=== PATIENT | female | born 1985 | race Caucasian/White ===

== ENCOUNTER 2016-04-30 09:33 | Inpatient (IN) | payer BC ==
[~2016-04-30] VITALS: Ht 154.9 cm; Wt 99.2 kg
[~2016-04-30 09:33] MED LIST: AZITHROMYCIN250 MG1 PO; COMBIVENT RESPIM4 GM IH; EXCEDRIN MIGRA1 EAC3 PO; IBUPROFEN800 MG PO; KLOR-CON M2020 MEQ PO; LEVAQUIN500 MG PO; METHADONE 22 MG/1 ML PO; METHADONE10 MG/1 M1 PO; METHADOSE40 MG PO; NICODERM CQ1 EAC2 TD; PREDNISONE10 MG PO; SUBOXONE 8 MG-1 EAC2 SL; VENTOLIN HFA18 GM IH; ZITHROMAX Z-PA250 MG PO
[2016-04-30 10:41] LABS: EOSINOPHIL (%) 0 % (0-5); IMMATURE GRANULOCYTE (%) 0.3 % (0.0-0.7); IMMATURE GRANULOCYTE COUNT 0.4 K/uL; LYMPHOCYTE COUNT 1.2 K/uL (1.0-2.8); MCH 29.3 PG (29.0-34.0); MCHC 33.1 G/DL (30.0-36.0); MCV 88.4 FL (83-99); MEAN PLAT.VOLUME 10.6 uM^3 (9.5-12.4); MONOCYTE (%) 2.5 % (3-12); MONOCYTE COUNT 0.4 K/uL (0-0.8); NEUTROPHIL (%) 88.8 % (45-76); NEUTROPHIL COUNT 12.6 K/uL (1.8-6.4); PLATELET COUNT 227 K/uL (156-360); RBC DIS.WIDTH-CV 13.2 % (11.8-14.6); RBC DIS.WIDTH-SD 41.2 % (39-53); RED BLOOD COUNT 3.96 M/uL (3.80-5.20); WHITE BLOOD COUNT 14.2 K/uL (4.1-10.2)
[2016-04-30 10:49] LABS: PROTHROMBIN TIME 10.4 (9.2-11.2)
[2016-04-30 10:51] LABS: CHLORIDE 103 mEq/L (99-109)
[2016-04-30 10:52] LABS: POTASSIUM 4.1 mEq/L (3.7-5.4); SODIUM 138 mEq/L (136-147)
[2016-04-30 10:53] LABS: GLUCOSE 100 mg/dL (70-99)
[2016-04-30 10:55] LABS: ANION GAP 11 MEQ/L (2-14)
[2016-04-30 10:57] LABS: GFR ESTIMATE (CALCULATED) > 59 mL/min/
[2016-04-30 10:58] LABS: UREA NITROGEN (BUN) 6 mg/dL (9-23)
[2016-04-30 11:06] LABS: QUANTITATIVE HCG < 4.0 MIU/ML
[2016-04-30 11:52] LABS: BASE EXCESS 1.8 mEq/L (-3 to +3); BICARBONATE 27.7 mEq/L (22-26); CARBOXY HGB 3.3 % (0-5); METHEMOGLOBIN 1.1 % (0-1.5); PCO2 48 mm Hg (35-45); PO2 56 mm Hg (80-100); pH 7.37 (7.35-7.45)
[2016-04-30 11:53] LABS: COMMENTS - BLOOD GASES A+C+; DEVICE HFNC; O2 FLOW 5 L/MIN; SITE RR; TOTAL RESP RATE 16 resp/min
[2016-04-30 13:44] LABS: BILIRUBIN NEGATIVE; BLOOD NEGATIVE; COLOR YELLOW ((YELLOW)); GLUCOSE (STRIP) 100; KETONES NEGATIVE; LEUKOCYTES NEGATIVE; NITRITE NEGATIVE; PROTEIN (STRIP) NEGATIVE; SPECIFIC GRAVITY 1.006 (1.000-1.030); UROBILINOGEN 0.2 MG/DL (0.2-1.0)
[2016-04-30 13:46] LABS: ADD MIUA? NO; UCUL ADDED? NO
[2016-04-30 15:13] VITALS: BP 112/70
[2016-04-30 16:48] VITALS: BP 110/68
[2016-04-30 19:27] VITALS: BP 123/71
[2016-04-30 23:20] VITALS: BP 120/53
[2016-05-01] VITALS (12 sets, daily range): BP systolic 103–136; BP diastolic 48–73
[2016-05-01 04:13] LABS: BASE EXCESS 2.7 mEq/L (-3 to +3); BICARBONATE 29.5 mEq/L (22-26); CARBOXY HGB 2.1 % (0-5); METHEMOGLOBIN 1.5 % (0-1.5); PCO2 56 mm Hg (35-45); PO2 77 mm Hg (80-100); pH 7.33 (7.35-7.45)
[2016-05-01 04:14] LABS: COMMENTS - BLOOD GASES A+C+; DEVICE HHFNC; FI02 80 %; O2 FLOW 50 L/MIN; SITE RR; TOTAL RESP RATE 40 resp/min
[2016-05-01 07:03] LABS: HEMATOCRIT 31.3 % (36.0-46.0); MCH 29.8 PG (29.0-34.0); MCHC 33.2 G/DL (30.0-36.0); MCV 89.7 FL (83-99); RBC DIS.WIDTH-CV 13.7 % (11.8-14.6); RBC DIS.WIDTH-SD 44.9 % (39-53); RED BLOOD COUNT 3.49 M/uL (3.80-5.20); WHITE BLOOD COUNT 10.7 K/uL (4.1-10.2)
[2016-05-01 07:11] LABS: METH RESISTANT S AUREUS PCR NEGATIVE (NEGATIVE)
[2016-05-01 07:16] LABS: ANION GAP 8 MEQ/L (2-14); CHLORIDE 104 MEQ/L (99-109); SAMPLE HEMOLYSIS CHECK 1; SAMPLE ICTERIC CHECK 0; SAMPLE LIPEMIA CHECK 0; SODIUM 136 MEQ/L (136-147)
[2016-05-01 07:21] LABS: GFR ESTIMATE (CALCULATED) > 59 mL/min/; GLUCOSE 86 mg/dL (70-99); UREA NITROGEN (BUN) 8 mg/dL (9-23)
[2016-05-01 07:26] LABS: PROBE CHECK PASS; SPECIMEN PROCESSING CONTROL PASS
[2016-05-01 07:35] LABS: ABS NEUTROPHIL COUNT 9.86; ANISOCYTOSIS RARE; MEAN PLAT.VOLUME ND uM^3 (9.5-12.4); PLAT.SUFFICIENCY ADEQUATE; PLATELET COUNT ND K/uL (156-360); USER ID LYM
[2016-05-01 07:38] LABS: DELETE MACHINE DIFF? YES
[2016-05-01 08:00] LABS: BASE EXCESS 1.7 mEq/L (-3 to +3); BICARBONATE 27.7 mEq/L (22-26); CARBOXY HGB 1.4 % (0-5); METHEMOGLOBIN 1.4 % (0-1.5); PCO2 49 mm Hg (35-45); PO2 334 mm Hg (80-100); pH 7.36 (7.35-7.45)
[2016-05-01 08:01] LABS: COMMENTS - BLOOD GASES AC+; CONTINUOUS POS AIRWAY PRESSURE 5 cm H2O; DEVICE 840 VENTILATOR; FI02 100 %; MODE NIPPV; PRES. SUPPORT 12 CM/H2O; SITE RR; TOTAL RESP RATE 31 resp/min
[2016-05-01 08:25] LABS: DIRECT BILIRUBIN 0.1 mg/dL (0.0-0.3); MAGNESIUM 1.8 mg/dl (1.3-2.7); TOTAL BILIRUBIN 0.4 MG/DL (0.0-1.0)
[2016-05-01 08:31] LABS: ALKALINE PHOSPHATASE 73 IU/L (3-129)
[2016-05-01 09:29] LABS: INTERNAL CONTROL VALID? YES
[2016-05-01 09:47] LABS: INFLUENZA A VIRAL ANTIGEN NEGATIVE; INFLUENZA B VIRAL ANTIGEN NEGATIVE
[2016-05-01 10:37] LABS: HIV INDEX 0.07; HIV-1/2 AB/AG COMBO Nonreactive
[2016-05-01 12:54] LABS: C3 COMPLEMENT 174 MG/DL (58-170); C4 COMPLEMENT 19 MG/DL (10-40)
[2016-05-01 18:28] LABS: POINT-OF-CARE METER ID UU14162636
[2016-05-02] VITALS (17 sets, daily range): BP systolic 102–150; BP diastolic 42–71
[2016-05-02 00:13] LABS: POINT-OF-CARE METER ID UU13113731
[2016-05-02 06:54] LABS: EOSINOPHIL (%) 0.1 % (0-5); HEMATOCRIT 33.3 % (36.0-46.0); IMMATURE GRANULOCYTE (%) 0.5 % (0.0-0.7); IMMATURE GRANULOCYTE COUNT 0.1 K/uL; LYMPHOCYTE COUNT 1.7 K/uL (1.0-2.8); MCHC 32.4 G/DL (30.0-36.0); MCV 92.5 FL (83-99); MONOCYTE (%) 4.1 % (3-12); MONOCYTE COUNT 0.7 K/uL (0-0.8); NEUTROPHIL (%) 84.6 % (45-76); NEUTROPHIL COUNT 13.4 K/uL (1.8-6.4); RBC DIS.WIDTH-CV 13.8 % (11.8-14.6); RBC DIS.WIDTH-SD 46.1 % (39-53)
[2016-05-02 06:56] LABS: WHITE BLOOD COUNT 15.8 K/uL (4.1-10.2)
[2016-05-02 06:58] LABS: CHLORIDE 100 MEQ/L (99-109); GFR ESTIMATE (CALCULATED) > 59 mL/min/; GLUCOSE 57 mg/dL (70-99); POTASSIUM 3.9 MEQ/L (3.7-5.4); SAMPLE HEMOLYSIS CHECK 0; SAMPLE ICTERIC CHECK 0; SAMPLE LIPEMIA CHECK 0; SODIUM 139 MEQ/L (136-147); UREA NITROGEN (BUN) 9 mg/dL (9-23)
[2016-05-02 06:59] LABS: ANION GAP 10 MEQ/L (2-14)
[2016-05-02 07:41] LABS: MEAN PLAT.VOLUME 11.3 uM^3 (9.5-12.4); PLAT.SUFFICIENCY ADEQUATE; PLATELET COUNT 223 K/uL (156-360); USER ID STC
[2016-05-02 10:46] LABS: POINT-OF-CARE METER ID UU13113748
[2016-05-03] VITALS (16 sets, daily range): BP systolic 98–127; BP diastolic 41–66
[2016-05-03 06:28] LABS: ANION GAP 9 MEQ/L (2-14); CHLORIDE 97 MEQ/L (99-109); GFR ESTIMATE (CALCULATED) > 59 mL/min/; GLUCOSE 76 mg/dL (70-99); MAGNESIUM 1.8 mg/dl (1.3-2.7); POTASSIUM 3.6 MEQ/L (3.7-5.4); SAMPLE HEMOLYSIS CHECK 0; SAMPLE ICTERIC CHECK 0; SAMPLE LIPEMIA CHECK 0; SODIUM 138 MEQ/L (136-147); UREA NITROGEN (BUN) 10 mg/dL (9-23)
[2016-05-03 07:31] LABS: EOSINOPHIL COUNT 0.3 K/uL (0-0.3); HEMATOCRIT 31.2 % (36.0-46.0); IMMATURE GRANULOCYTE (%) 0.1 % (0.0-0.7); LYMPHOCYTE COUNT 1.5 K/uL (1.0-2.8); MCH 28.9 PG (29.0-34.0); MCHC 32.1 G/DL (30.0-36.0); MCV 90.2 FL (83-99); MEAN PLAT.VOLUME 10.6 uM^3 (9.5-12.4); MONOCYTE (%) 3.6 % (3-12); MONOCYTE COUNT 0.3 K/uL (0-0.8); NEUTROPHIL (%) 71.9 % (45-76); NEUTROPHIL COUNT 5.3 K/uL (1.8-6.4); PLATELET COUNT 238 K/uL (156-360); RBC DIS.WIDTH-CV 13.5 % (11.8-14.6); RBC DIS.WIDTH-SD 44.5 % (39-53); RED BLOOD COUNT 3.46 M/uL (3.80-5.20)
[2016-05-03 07:49] LABS: WHITE BLOOD COUNT 7.4 K/uL (4.1-10.2)
[2016-05-04] VITALS (16 sets, daily range): BP systolic 98–132; BP diastolic 51–79
[2016-05-04 06:29] LABS: ANION GAP 7 MEQ/L (2-14); CHLORIDE 99 MEQ/L (99-109); GFR ESTIMATE (CALCULATED) > 59 mL/min/; GLUCOSE 90 mg/dL (70-99); POTASSIUM 3.6 MEQ/L (3.7-5.4); SAMPLE HEMOLYSIS CHECK 0; SAMPLE ICTERIC CHECK 0; SAMPLE LIPEMIA CHECK 0; SODIUM 139 MEQ/L (136-147); UREA NITROGEN (BUN) 12 mg/dL (9-23)
[2016-05-04 07:48] LABS: EOSINOPHIL (%) 6.2 % (0-5); EOSINOPHIL COUNT 0.3 K/uL (0-0.3); HEMATOCRIT 31.7 % (36.0-46.0); IMMATURE GRANULOCYTE (%) 0.2 % (0.0-0.7); LYMPHOCYTE COUNT 2.1 K/uL (1.0-2.8); MCH 28.3 PG (29.0-34.0); MCHC 31.2 G/DL (30.0-36.0); MCV 90.6 FL (83-99); MEAN PLAT.VOLUME 10.6 uM^3 (9.5-12.4); MONOCYTE (%) 3.1 % (3-12); MONOCYTE COUNT 0.2 K/uL (0-0.8); NEUTROPHIL (%) 47.3 % (45-76); NEUTROPHIL COUNT 2.3 K/uL (1.8-6.4); PLATELET COUNT 235 K/uL (156-360); RBC DIS.WIDTH-CV 13.5 % (11.8-14.6); RBC DIS.WIDTH-SD 44.5 % (39-53); WHITE BLOOD COUNT 4.8 K/uL (4.1-10.2)
[2016-05-04 20:53] LABS: Neutrophil Cytoplasmic Aby Negative (Negative)
[2016-05-05] VITALS (7 sets, daily range): BP systolic 0–123; BP diastolic 0–74
[2016-05-05 05:48] LABS: EOSINOPHIL (%) 5.1 % (0-5); EOSINOPHIL COUNT 0.3 K/uL (0-0.3); HEMATOCRIT 32.1 % (36.0-46.0); IMMATURE GRANULOCYTE (%) 0.4 % (0.0-0.7); LYMPHOCYTE COUNT 1.9 K/uL (1.0-2.8); MCH 28.7 PG (29.0-34.0); MCHC 31.8 G/DL (30.0-36.0); MCV 90.2 FL (83-99); MEAN PLAT.VOLUME 10.2 uM^3 (9.5-12.4); MONOCYTE (%) 5.7 % (3-12); MONOCYTE COUNT 0.3 K/uL (0-0.8); NEUTROPHIL (%) 52.2 % (45-76); NEUTROPHIL COUNT 2.8 K/uL (1.8-6.4); PLATELET COUNT 269 K/uL (156-360); RBC DIS.WIDTH-CV 13.1 % (11.8-14.6); RBC DIS.WIDTH-SD 43.6 % (39-53); RED BLOOD COUNT 3.56 M/uL (3.80-5.20); WHITE BLOOD COUNT 5.3 K/uL (4.1-10.2)
[2016-05-05 07:00] LABS: ANION GAP 9 MEQ/L (2-14); CHLORIDE 100 MEQ/L (99-109); GFR ESTIMATE (CALCULATED) > 59 mL/min/; GLUCOSE 73 mg/dL (70-99); SAMPLE HEMOLYSIS CHECK 0; SAMPLE ICTERIC CHECK 0; SAMPLE LIPEMIA CHECK 0; SODIUM 141 MEQ/L (136-147); UREA NITROGEN (BUN) 10 mg/dL (9-23)
[2016-05-05 07:01] LABS: POTASSIUM 4.4 MEQ/L (3.7-5.4)
[2016-05-05 09:48] LABS: ANTI-NUCLEAR AB SCRN/RFLX(ANA) NONREACTIVE (NONREACTIVE)
[2016-05-06 05:51] LABS: EOSINOPHIL (%) 4.3 % (0-5); EOSINOPHIL COUNT 0.3 K/uL (0-0.3); HEMATOCRIT 34.3 % (36.0-46.0); IMMATURE GRANULOCYTE (%) 0.7 % (0.0-0.7); LYMPHOCYTE COUNT 2.5 K/uL (1.0-2.8); MCH 29.7 PG (29.0-34.0); MCHC 32.4 G/DL (30.0-36.0); MCV 91.7 FL (83-99); MEAN PLAT.VOLUME 10.3 uM^3 (9.5-12.4); MONOCYTE (%) 6.2 % (3-12); MONOCYTE COUNT 0.4 K/uL (0-0.8); NEUTROPHIL (%) 44.8 % (45-76); NEUTROPHIL COUNT 2.6 K/uL (1.8-6.4); PLATELET COUNT 274 K/uL (156-360); RBC DIS.WIDTH-CV 13.3 % (11.8-14.6); RBC DIS.WIDTH-SD 44.8 % (39-53); RED BLOOD COUNT 3.74 M/uL (3.80-5.20); WHITE BLOOD COUNT 5.8 K/uL (4.1-10.2)
[2016-05-06 06:00] VITALS: BP 109/58
[2016-05-06 06:25] LABS: ANION GAP 8 MEQ/L (2-14); CHLORIDE 99 MEQ/L (99-109); GFR ESTIMATE (CALCULATED) > 59 mL/min/; GLUCOSE 59 mg/dL (70-99); POTASSIUM 4.8 MEQ/L (3.7-5.4); SAMPLE HEMOLYSIS CHECK 0; SAMPLE ICTERIC CHECK 0; SAMPLE LIPEMIA CHECK 0; SODIUM 140 MEQ/L (136-147); UREA NITROGEN (BUN) 10 mg/dL (9-23)
[2016-05-06 10:40] VITALS: BP 119/67
[2016-05-06 16:37] VITALS: BP 105/56
[2016-05-06 19:05] VITALS: BP 127/56
[2016-05-07 00:17] VITALS: BP 130/56
[2016-05-07 03:05] VITALS: BP 111/55
[2016-05-07 07:01] LABS: EOSINOPHIL (%) 4.4 % (0-5); EOSINOPHIL COUNT 0.2 K/uL (0-0.3); HEMATOCRIT 32.7 % (36.0-46.0); IMMATURE GRANULOCYTE (%) 1.8 % (0.0-0.7); IMMATURE GRANULOCYTE COUNT 0.1 K/uL; LYMPHOCYTE COUNT 2.5 K/uL (1.0-2.8); MCH 29.9 PG (29.0-34.0); MCV 90.6 FL (83-99); MEAN PLAT.VOLUME 10.4 uM^3 (9.5-12.4); MONOCYTE (%) 6.2 % (3-12); MONOCYTE COUNT 0.3 K/uL (0-0.8); NEUTROPHIL (%) 41.4 % (45-76); NEUTROPHIL COUNT 2.3 K/uL (1.8-6.4); PLATELET COUNT 266 K/uL (156-360); RBC DIS.WIDTH-CV 13.4 % (11.8-14.6); RBC DIS.WIDTH-SD 44.6 % (39-53); RED BLOOD COUNT 3.61 M/uL (3.80-5.20); WHITE BLOOD COUNT 5.5 K/uL (4.1-10.2)
[2016-05-07 07:10] VITALS: BP 114/58
[2016-05-07 07:27] LABS: ANION GAP 8 MEQ/L (2-14); CHLORIDE 98 MEQ/L (99-109); GFR ESTIMATE (CALCULATED) > 59 mL/min/; GLUCOSE 69 mg/dL (70-99); POTASSIUM 4.4 MEQ/L (3.7-5.4); SAMPLE HEMOLYSIS CHECK 0; SAMPLE ICTERIC CHECK 0; SAMPLE LIPEMIA CHECK 0; SODIUM 137 MEQ/L (136-147); UREA NITROGEN (BUN) 10 mg/dL (9-23)
[2016-05-07] MEDS ORDERED: NICOTINE PATCH1 EAC1 TD (11:28)
[2016-05-07] MEDS ORDERED: LEVOFLOXACIN750 MG PO (11:28)
[2016-05-07] MEDS ORDERED: VENTOLIN HFA18 GM IH (11:29)
== END 2016-05-07 12:20 | disposition home or self-care (01) | DRG 871 ==
LOC: EME 09:33 → 4WEST 11:11 → EDOF 11:11 → 4EAST 14:57 → 4WEST 05-01 05:50 → 2EAST 05-06 11:27
PROVIDERS: Emergency Medicine; Family Medicine; Internal Medicine; Internal Medicine Infectious Disease; Internal Medicine Nephrology; Internal Medicine Pulmonary Disease; Physician Assistant Medical
PROC: 5A09457 Assistance with Respiratory Ventilation, 24-96 Consecutive Hours, Continuous Positive Airway Pressure (ICD-10-PCS; principal; 2016-05-01)
DX: A41.9 Sepsis, unspecified organism (principal); J18.9 Pneumonia, unspecified organism; J96.01 Acute respiratory failure with hypoxia; E87.2 Acidosis; E66.01 Morbid (severe) obesity due to excess calories; Z68.41 Body mass index [BMI] 40.0-44.9, adult; F11.20 Opioid dependence, uncomplicated; D64.9 Anemia, unspecified; F17.210 Nicotine dependence, cigarettes, uncomplicated; Z71.6 Tobacco abuse counseling
CPT/HCPCS: 36600; 71010; 71275; 80048; 80076; 80202; 81003; 82803; 82948; 83605; 83735; 84100; 84702; 85025; 85610; 86021 90; 86038; 86160; 86235; 86355 90; 86359 90; 86360 90; 86703; 87040; 87070; 87205; 87449; 87502; 87641; 93005; 93306; 94002; 94640; 94640 76; 94799; 99202; 99281; 99285; J0456; J0696; J1650; J1815; J1940; J1956; J2543; J2920; J3370; J7050; J7060; J7120; S0028; S0039

== ENCOUNTER 2016-07-23 20:12 | Inpatient (IN) | payer BC ==
[~2016-07-23] VITALS: Ht 154.9 cm; Wt 107.3 kg
[~2016-07-23 20:12] MED LIST changes: +LEVOFLOXACIN750 MG PO; +NICOTINE PATCH1 EAC1 TD
[2016-07-23 21:05] LABS: HEMATOCRIT 35.3 % (36.0-46.0); MCH 29.3 PG (29.0-34.0); MCHC 33.4 G/DL (30.0-36.0); MCV 87.6 FL (83-99); MEAN PLAT.VOLUME 10.5 uM^3 (9.5-12.4); PLATELET COUNT 203 K/uL (156-360); RBC DIS.WIDTH-CV 14.3 % (11.8-14.6); RED BLOOD COUNT 4.03 M/uL (3.80-5.20); WHITE BLOOD COUNT 11.2 K/uL (4.1-10.2)
[2016-07-23 21:15] LABS: CHLORIDE 106 mEq/L (99-109); POTASSIUM 3.7 mEq/L (3.7-5.4); SODIUM 140 mEq/L (136-147)
[2016-07-23 21:17] LABS: GLUCOSE 127 mg/dL (70-99)
[2016-07-23 21:18] LABS: ANION GAP 11 MEQ/L (2-14)
[2016-07-23 21:20] LABS: GFR ESTIMATE (CALCULATED) > 59 mL/min/
[2016-07-23 21:21] LABS: UREA NITROGEN (BUN) 8 mg/dL (9-23)
[2016-07-24] VITALS (7 sets, daily range): BP systolic 121–134; BP diastolic 57–70
[2016-07-24] MEDS ORDERED: NICOTINE PATCH1 EAC2 TD (00:11)
[2016-07-24] MEDS ORDERED: DUONEB 2.5-0.5 M3 ML AEROSOL (00:12)
[2016-07-24] MEDS ORDERED: IBUPROFEN800 MG PO (00:13)
[2016-07-24 08:07] LABS: INTERNAL CONTROL VALID? YES
[2016-07-24 12:01] LABS: HIV-1/2 AB/AG COMBO Nonreactive
[2016-07-24 22:17] LABS: INFLUENZA A VIRAL ANTIGEN NEGATIVE; INFLUENZA B VIRAL ANTIGEN NEGATIVE
[2016-07-25 03:10] VITALS: BP 132/64
[2016-07-25 05:10] VITALS: BP 117/63
[2016-07-25 06:43] LABS: HEMATOCRIT 36.4 % (36.0-46.0); MCH 28.8 PG (29.0-34.0); MCHC 31.9 G/DL (30.0-36.0); MCV 90.3 FL (83-99); MEAN PLAT.VOLUME 11.1 uM^3 (9.5-12.4); PLATELET COUNT 228 K/uL (156-360); RBC DIS.WIDTH-CV 14.7 % (11.8-14.6); RED BLOOD COUNT 4.03 M/uL (3.80-5.20); WHITE BLOOD COUNT 12.9 K/uL (4.1-10.2)
[2016-07-25 06:58] LABS: PTT 23.3 (25-32)
[2016-07-25 07:07] LABS: ANION GAP 8 MEQ/L (2-14); CHLORIDE 106 MEQ/L (99-109); GFR ESTIMATE (CALCULATED) > 59 mL/min/; GLUCOSE 104 mg/dL (70-99); LACTATE DEHYDROGENASE 331 IU/L (20-246); SAMPLE HEMOLYSIS CHECK 0; SAMPLE ICTERIC CHECK 0; SAMPLE LIPEMIA CHECK 0; SODIUM 140 MEQ/L (136-147); UREA NITROGEN (BUN) 11 mg/dL (9-23)
[2016-07-25 07:14] LABS: POTASSIUM 4.6 MEQ/L (3.7-5.4)
[2016-07-25 08:00] VITALS: BP 120/61
[2016-07-25 12:10] VITALS: BP 115/59
[2016-07-25 20:00] VITALS: BP 113/55
[2016-07-26] VITALS: BP 123/69
[2016-07-26 04:00] VITALS: BP 142/62
[2016-07-26 08:17] VITALS: BP 122/61
[2016-07-26 08:21] LABS: HEMATOCRIT 35.5 % (36.0-46.0); MCH 28.9 PG (29.0-34.0); MCHC 31.8 G/DL (30.0-36.0); MCV 90.8 FL (83-99); MEAN PLAT.VOLUME 10.3 uM^3 (9.5-12.4); PLATELET COUNT 227 K/uL (156-360); RBC DIS.WIDTH-SD 49.9 % (39-53); RED BLOOD COUNT 3.91 M/uL (3.80-5.20); WHITE BLOOD COUNT 10.5 K/uL (4.1-10.2)
[2016-07-26 08:46] LABS: ANION GAP 9 MEQ/L (2-14); CHLORIDE 109 MEQ/L (99-109); GFR ESTIMATE (CALCULATED) > 59 mL/min/; POTASSIUM 3.8 MEQ/L (3.7-5.4); SAMPLE HEMOLYSIS CHECK 0; SAMPLE ICTERIC CHECK 0; SAMPLE LIPEMIA CHECK 0; SODIUM 141 MEQ/L (136-147); UREA NITROGEN (BUN) 12 mg/dL (9-23)
[2016-07-26 08:47] LABS: GLUCOSE 67 mg/dL (70-99)
[2016-07-26 11:40] VITALS: BP 118/60
[2016-07-26 15:49] VITALS: BP 114/66
[2016-07-26 20:00] VITALS: BP 119/57
[2016-07-26 23:34] LABS: PROCALCITONIN+ <0.10 ng/mL (<0.10)
[2016-07-27] VITALS: BP 133/86
[2016-07-27 04:00] VITALS: BP 126/80
[2016-07-27 08:00] VITALS: BP 119/56
[2016-07-27 11:28] VITALS: BP 135/63
[2016-07-27 11:29] VITALS: BP 119/73
[2016-07-27] MEDS ORDERED: DELTASONE20 M1 PO (14:10)
[2016-07-27] MEDS ORDERED: NICOTINE PATCH1 EAC2 TD (14:38)
== END 2016-07-27 15:00 | disposition home or self-care (01) | DRG 167 ==
LOC: EME 20:12 → 4SOUTH 23:56 → EDOF 23:56 → 4SOUTH 07-24 01:03
PROVIDERS: Hospitalist; Internal Medicine; Internal Medicine Infectious Disease; Internal Medicine Pulmonary Disease
PROC: 0BBJ8ZX Excision of Left Lower Lung Lobe, Via Natural or Artificial Opening Endoscopic, Diagnostic (ICD-10-PCS; principal; 2016-07-25)
DX: J96.01 Acute respiratory failure with hypoxia (principal); J98.9 Respiratory disorder, unspecified; Z68.41 Body mass index [BMI] 40.0-44.9, adult; B19.20 Unspecified viral hepatitis C without hepatic coma; F11.21 Opioid dependence, in remission; F11.90 Opioid use, unspecified, uncomplicated; F17.210 Nicotine dependence, cigarettes, uncomplicated; E66.9 Obesity, unspecified; D64.9 Anemia, unspecified; Z87.01 Personal history of pneumonia (recurrent); G89.29 Other chronic pain
CPT/HCPCS: 71010; 71020; 71275; 76001; 80048; 82164 90; 83615; 84145 90; 85027; 85610; 85651; 85730; 86038; 86331 90; 86606 90; 86609 90; 86671 90; 86703; 87040; 87070; 87116; 87205; 87206; 87220; 87278; 87449; 87502; 88108; 88305; 88311; 88313; 94640; 94640 76; 94644; 94799; 99202; 99281; 99285; J0456; J0461; J0696; J1644; J1956; J2175; J2250; J2310; J2550; J2920; J3010; J7030; J7050; J7512

== ENCOUNTER 2016-09-24 11:12 | Inpatient (IN) | payer BC ==
[~2016-09-24] VITALS: Ht 154.9 cm; Wt 108.3 kg
[~2016-09-24 11:12] MED LIST changes: +DELTASONE20 M1 PO; +DUONEB 2.5-0.5 M3 ML AEROSOL; +NICOTINE PATCH1 EAC2 TD
[2016-09-24] MEDS ORDERED: PREDNISONE10 MG PO (11:24)
[2016-09-24 12:27] LABS: EOSINOPHIL (%) 0 % (0-5); HEMATOCRIT 37.5 % (36.0-46.0); IMMATURE GRANULOCYTE COUNT 0.2 K/uL; INSTRUMENT ABS NEUTROPHIL CT 15.9 K/uL; MCHC 33.1 G/DL (30.0-36.0); MCV 90.6 FL (83-99); MONOCYTE (%) 3.2 % (3-12); MONOCYTE COUNT 0.6 K/uL (0-0.8); NEUTROPHIL (%) 89.9 % (45-76); NEUTROPHIL COUNT 15.9 K/uL (1.8-6.4); PLATELET COUNT 216 K/uL (156-360); RBC DIS.WIDTH-CV 14.3 % (11.8-14.6); RBC DIS.WIDTH-SD 47.3 % (39-53); RED BLOOD COUNT 4.14 M/uL (3.80-5.20); WHITE BLOOD COUNT 17.7 K/uL (4.1-10.2)
[2016-09-24 12:37] LABS: PROTHROMBIN TIME 10.1 (9.2-11.2); PTT 27.4 (25-32)
[2016-09-24 12:41] LABS: CHLORIDE 107 mEq/L (99-109); POTASSIUM 3.6 mEq/L (3.7-5.4); SODIUM 141 mEq/L (136-147)
[2016-09-24 12:42] LABS: GLUCOSE 147 mg/dL (70-99)
[2016-09-24 12:44] LABS: ANION GAP 13 MEQ/L (2-14)
[2016-09-24 12:46] LABS: GFR ESTIMATE (CALCULATED) > 59 mL/min/
[2016-09-24 12:47] LABS: UREA NITROGEN (BUN) 11 mg/dL (9-23)
[2016-09-24 12:49] LABS: TROP-I INTERPRETATION NEGATIVE; TROPONIN-I < 0.01 ng/mL (0.0-0.30)
[2016-09-24] MEDS ORDERED: DUONEB 2.5-0.5 M3 ML AEROSOL (15:09)
[2016-09-24] MEDS ORDERED: PROAIR HFA8.5 GM IH (15:12)
[2016-09-24] MEDS ORDERED: ZANTAC150 MG PO (15:13)
[2016-09-24] MEDS ORDERED: MOTRIN800 MG PO (15:13)
[2016-09-24 16:10] LABS: CARBON DIOXIDE (BICARBONATE) 27.4 MEQ/L (20-31)
[2016-09-24 16:30] VITALS: BP 121/81
[2016-09-24 17:09] LABS: POINT-OF-CARE METER ID UU13113781
[2016-09-24 19:30] VITALS: BP 126/69
[2016-09-24 21:40] LABS: POINT-OF-CARE METER ID UU13113698
[2016-09-25 00:08] VITALS: BP 111/86
[2016-09-25 01:15] LABS: TROP-I INTERPRETATION NEGATIVE; TROPONIN-I < 0.01 ng/mL (0.0-0.30)
[2016-09-25 04:07] VITALS: BP 126/62
[2016-09-25 04:55] LABS: METH RESISTANT S AUREUS PCR NEGATIVE (NEGATIVE)
[2016-09-25 05:00] LABS: PROBE CHECK PASS; SPECIMEN PROCESSING CONTROL PASS
[2016-09-25 05:52] LABS: HEMATOCRIT 34.6 % (36.0-46.0); MCHC 32.7 G/DL (30.0-36.0); MCV 91.8 FL (83-99); MEAN PLAT.VOLUME 11.1 uM^3 (9.5-12.4); PLATELET COUNT 227 K/uL (156-360); RBC DIS.WIDTH-CV 14.5 % (11.8-14.6); RBC DIS.WIDTH-SD 48.9 % (39-53); RED BLOOD COUNT 3.77 M/uL (3.80-5.20); WHITE BLOOD COUNT 16.9 K/uL (4.1-10.2)
[2016-09-25 06:30] LABS: TROP-I INTERPRETATION NEGATIVE; TROPONIN-I < 0.01 ng/mL (0.0-0.30)
[2016-09-25 07:39] VITALS: BP 125/75
[2016-09-25 09:42] LABS: ANION GAP 10 MEQ/L (2-14); CHLORIDE 107 MEQ/L (99-109); GFR ESTIMATE (CALCULATED) > 59 mL/min/; SAMPLE HEMOLYSIS CHECK 0; SAMPLE ICTERIC CHECK 0; SAMPLE LIPEMIA CHECK 0; SODIUM 140 MEQ/L (136-147); UREA NITROGEN (BUN) 13 mg/dL (9-23)
[2016-09-25 09:56] LABS: GLUCOSE 103 mg/dL (70-99)
[2016-09-25 12:24] VITALS: BP 107/58
[2016-09-25 16:11] VITALS: BP 108/63
[2016-09-25 16:11] LABS: POINT-OF-CARE METER ID UU14174216
[2016-09-25 20:55] VITALS: BP 111/58
[2016-09-25 21:15] LABS: POINT-OF-CARE METER ID UU14174216
[2016-09-26 01:14] VITALS: BP 110/62
[2016-09-26 05:13] VITALS: BP 132/72
[2016-09-26 07:30] LABS: POINT-OF-CARE METER ID UU14174216
[2016-09-26 07:44] VITALS: BP 134/64
[2016-09-26 07:57] LABS: HEMATOCRIT 33.6 % (36.0-46.0); MCH 30.9 PG (29.0-34.0); MCV 93.6 FL (83-99); MEAN PLAT.VOLUME 10.8 uM^3 (9.5-12.4); PLATELET COUNT 229 K/uL (156-360); RBC DIS.WIDTH-CV 14.6 % (11.8-14.6); RBC DIS.WIDTH-SD 50.2 % (39-53); RED BLOOD COUNT 3.59 M/uL (3.80-5.20); WHITE BLOOD COUNT 16.2 K/uL (4.1-10.2)
[2016-09-26 08:22] LABS: ANION GAP 7 MEQ/L (2-14); CHLORIDE 108 MEQ/L (99-109); GFR ESTIMATE (CALCULATED) > 59 mL/min/; GLUCOSE 127 mg/dL (70-99); POTASSIUM 4.1 MEQ/L (3.7-5.4); SAMPLE HEMOLYSIS CHECK 0; SAMPLE ICTERIC CHECK 0; SAMPLE LIPEMIA CHECK 0; SODIUM 141 MEQ/L (136-147); UREA NITROGEN (BUN) 13 mg/dL (9-23)
[2016-09-26 11:23] VITALS: BP 111/55
[2016-09-26 16:19] VITALS: BP 124/65
[2016-09-26 19:13] VITALS: BP 124/64
[2016-09-26 20:56] LABS: POINT-OF-CARE METER ID UU14174216
[2016-09-27 01:03] VITALS: BP 139/67
[2016-09-27 04:39] VITALS: BP 138/76
[2016-09-27 05:29] LABS: HEMATOCRIT 34.8 % (36.0-46.0); MCH 30.6 PG (29.0-34.0); MCV 92.6 FL (83-99); MEAN PLAT.VOLUME 10.9 uM^3 (9.5-12.4); PLATELET COUNT 236 K/uL (156-360); RBC DIS.WIDTH-CV 14.6 % (11.8-14.6); RBC DIS.WIDTH-SD 49.3 % (39-53); RED BLOOD COUNT 3.76 M/uL (3.80-5.20); WHITE BLOOD COUNT 12.3 K/uL (4.1-10.2)
[2016-09-27 06:01] LABS: ANION GAP 6 MEQ/L (2-14); CHLORIDE 105 MEQ/L (99-109); GFR ESTIMATE (CALCULATED) > 59 mL/min/; POTASSIUM 4.1 MEQ/L (3.7-5.4); SAMPLE HEMOLYSIS CHECK 0; SAMPLE ICTERIC CHECK 0; SAMPLE LIPEMIA CHECK 0; SODIUM 140 MEQ/L (136-147); UREA NITROGEN (BUN) 11 mg/dL (9-23)
[2016-09-27 06:03] LABS: GLUCOSE 95 mg/dL (70-99)
[2016-09-27 07:40] VITALS: BP 138/73
[2016-09-27 08:01] LABS: POINT-OF-CARE METER ID UU14174216
[2016-09-27 11:21] LABS: POINT-OF-CARE METER ID UU14174216
[2016-09-27 11:27] VITALS: BP 123/67
[2016-09-27 16:14] VITALS: BP 129/71
[2016-09-27 20:00] VITALS: BP 138/81
[2016-09-28 00:48] VITALS: BP 143/77
[2016-09-28 05:56] VITALS: BP 140/84
[2016-09-28 05:58] LABS: EOSINOPHIL (%) 0 % (0-5); HEMATOCRIT 37.7 % (36.0-46.0); IMMATURE GRANULOCYTE (%) 1.3 % (0.0-0.7); IMMATURE GRANULOCYTE COUNT 0.2 K/uL; INSTRUMENT ABS NEUTROPHIL CT 12.2 K/uL; LYMPHOCYTE COUNT 2.4 K/uL (1.0-2.8); MCHC 32.9 G/DL (30.0-36.0); MCV 91.3 FL (83-99); MEAN PLAT.VOLUME 10.4 uM^3 (9.5-12.4); MONOCYTE COUNT 0.9 K/uL (0-0.8); NEUTROPHIL (%) 77.3 % (45-76); NEUTROPHIL COUNT 12.2 K/uL (1.8-6.4); PLATELET COUNT 262 K/uL (156-360); RBC DIS.WIDTH-CV 14.1 % (11.8-14.6); RBC DIS.WIDTH-SD 47.7 % (39-53); RED BLOOD COUNT 4.13 M/uL (3.80-5.20); WHITE BLOOD COUNT 15.7 K/uL (4.1-10.2)
[2016-09-28 06:52] LABS: Estimated Average Glucose 120 mg/dL (70-123); HEMOGLOBIN A1c (GLYCOHEMOGLOB) 5.8 % HGB (Below 5.7)
[2016-09-28 08:22] VITALS: BP 159/80
[2016-09-28 11:14] VITALS: BP 119/64
[2016-09-28 15:50] VITALS: BP 116/67
[2016-09-28 19:49] VITALS: BP 118/70
[2016-09-29] VITALS: BP 115/59
[2016-09-29 04:08] VITALS: BP 134/71
[2016-09-29 05:30] LABS: EOSINOPHIL (%) 0.9 % (0-5); EOSINOPHIL COUNT 0.1 K/uL (0-0.3); HEMATOCRIT 36.9 % (36.0-46.0); IMMATURE GRANULOCYTE (%) 2.3 % (0.0-0.7); IMMATURE GRANULOCYTE COUNT 0.3 K/uL; INSTRUMENT ABS NEUTROPHIL CT 6.6 K/uL; LYMPHOCYTE COUNT 4.8 K/uL (1.0-2.8); MCH 30.3 PG (29.0-34.0); MCHC 33.1 G/DL (30.0-36.0); MCV 91.8 FL (83-99); MEAN PLAT.VOLUME 10.4 uM^3 (9.5-12.4); MONOCYTE (%) 7.1 % (3-12); MONOCYTE COUNT 0.9 K/uL (0-0.8); NEUTROPHIL (%) 51.8 % (45-76); NEUTROPHIL COUNT 6.6 K/uL (1.8-6.4); PLATELET COUNT 239 K/uL (156-360); RBC DIS.WIDTH-CV 14.3 % (11.8-14.6); RBC DIS.WIDTH-SD 48.2 % (39-53); RED BLOOD COUNT 4.02 M/uL (3.80-5.20); WHITE BLOOD COUNT 12.6 K/uL (4.1-10.2)
[2016-09-29 06:31] LABS: ANION GAP 9 MEQ/L (2-14); CHLORIDE 102 MEQ/L (99-109); GFR ESTIMATE (CALCULATED) > 59 mL/min/; POTASSIUM 3.9 MEQ/L (3.7-5.4); SAMPLE HEMOLYSIS CHECK 0; SAMPLE ICTERIC CHECK 0; SAMPLE LIPEMIA CHECK 0; SODIUM 142 MEQ/L (136-147); UREA NITROGEN (BUN) 18 mg/dL (9-23)
[2016-09-29 06:55] LABS: GLUCOSE 63 mg/dL (70-99)
[2016-09-29 07:42] VITALS: BP 136/78
[2016-09-29 11:40] VITALS: BP 130/80
[2016-09-29 20:40] VITALS: BP 122/70
[2016-09-30 00:16] VITALS: BP 98/47
[2016-09-30 03:30] VITALS: BP 109/67
[2016-09-30 07:14] LABS: EOSINOPHIL (%) 0.2 % (0-5); HEMATOCRIT 37.7 % (36.0-46.0); IMMATURE GRANULOCYTE (%) 2.5 % (0.0-0.7); IMMATURE GRANULOCYTE COUNT 0.4 K/uL; INSTRUMENT ABS NEUTROPHIL CT 10.7 K/uL; LYMPHOCYTE COUNT 3.5 K/uL (1.0-2.8); MCH 29.6 PG (29.0-34.0); MCHC 32.6 G/DL (30.0-36.0); MCV 90.8 FL (83-99); MONOCYTE (%) 8.9 % (3-12); MONOCYTE COUNT 1.4 K/uL (0-0.8); NEUTROPHIL (%) 66.5 % (45-76); NEUTROPHIL COUNT 10.7 K/uL (1.8-6.4); PLATELET COUNT 269 K/uL (156-360); RBC DIS.WIDTH-CV 14.1 % (11.8-14.6); RBC DIS.WIDTH-SD 47.5 % (39-53); RED BLOOD COUNT 4.15 M/uL (3.80-5.20)
[2016-09-30 07:25] VITALS: BP 111/66
[2016-09-30 07:44] LABS: ANION GAP 8 MEQ/L (2-14); CHLORIDE 99 MEQ/L (99-109); GFR ESTIMATE (CALCULATED) > 59 mL/min/; GLUCOSE 90 mg/dL (70-99); POTASSIUM 4.3 MEQ/L (3.7-5.4); SAMPLE HEMOLYSIS CHECK 0; SAMPLE ICTERIC CHECK 0; SAMPLE LIPEMIA CHECK 0; SODIUM 136 MEQ/L (136-147); UREA NITROGEN (BUN) 18 mg/dL (9-23)
[2016-09-30 11:37] VITALS: BP 110/60
[2016-09-30 16:30] VITALS: BP 112/59
[2016-09-30 19:00] VITALS: BP 119/64
[2016-10-01] VITALS (7 sets, daily range): BP systolic 104–131; BP diastolic 53–73
[2016-10-01 17:30] LABS: POINT-OF-CARE METER ID UU13113781
[2016-10-01 21:46] LABS: POINT-OF-CARE METER ID UU14174216
[2016-10-02 03:52] VITALS: BP 113/75
[2016-10-02 06:47] LABS: HEMATOCRIT 37.8 % (36.0-46.0); MCH 29.8 PG (29.0-34.0); MCHC 32.3 G/DL (30.0-36.0); MCV 92.2 FL (83-99); MEAN PLAT.VOLUME 10.1 uM^3 (9.5-12.4); PLATELET COUNT 244 K/uL (156-360); RBC DIS.WIDTH-CV 14.4 % (11.8-14.6); RBC DIS.WIDTH-SD 48.6 % (39-53)
[2016-10-02 07:22] LABS: ANION GAP 9 MEQ/L (2-14); CHLORIDE 96 MEQ/L (99-109); GFR ESTIMATE (CALCULATED) > 59 mL/min/; GLUCOSE 62 mg/dL (70-99); MAGNESIUM 2.3 mg/dl (1.3-2.7); POTASSIUM 4.4 MEQ/L (3.7-5.4); SAMPLE HEMOLYSIS CHECK 0; SAMPLE ICTERIC CHECK 0; SAMPLE LIPEMIA CHECK 0; SODIUM 137 MEQ/L (136-147); UREA NITROGEN (BUN) 11 mg/dL (9-23)
[2016-10-02 08:00] VITALS: BP 120/66
[2016-10-02 15:50] VITALS: BP 118/70
[2016-10-02] MEDS ORDERED: TORADOL10 MG PO (16:51)
[2016-10-02] MEDS ORDERED: PREDNISONE20 MG PO (16:51)
[2016-10-02] MEDS ORDERED: MUCINEX600 MG PO (16:51)
[2016-10-03 10:24] LABS: INTERNAL CONTROL VALID? YES
== END 2016-10-02 17:55 | disposition home or self-care (01) | DRG 167 ==
LOC: EME 11:12 → 4EAST 15:30 → EDOF 15:30 → 4EAST 16:22 → 3EAST 10-01 22:29
PROVIDERS: Emergency Medicine; Internal Medicine; Thoracic Surgery (Cardiothoracic Vascular Surgery)
DX: J96.01 Acute respiratory failure with hypoxia (principal); J84.116 Cryptogenic organizing pneumonia; J84.01 Alveolar proteinosis; F11.20 Opioid dependence, uncomplicated; J67.9 Hypersensitivity pneumonitis due to unspecified organic dust; E66.9 Obesity, unspecified; F17.210 Nicotine dependence, cigarettes, uncomplicated; F32.9 Major depressive disorder, single episode, unspecified; F41.9 Anxiety disorder, unspecified; J93.9 Pneumothorax, unspecified; T38.0X5A Adverse effect of glucocorticoids and synthetic analogues, initial encounter; Z68.41 Body mass index [BMI] 40.0-44.9, adult; Z80.3 Family history of malignant neoplasm of breast; Z83.2 Family history of diseases of the blood and blood-forming organs and certain disorders involving the immune mechanism; Z87.01 Personal history of pneumonia (recurrent); B19.20 Unspecified viral hepatitis C without hepatic coma; R00.0 Tachycardia, unspecified; G47.33 Obstructive sleep apnea (adult) (pediatric); J98.9 Respiratory disorder, unspecified
CPT/HCPCS: 71010; 71020; 71275; 80048; 82803; 82948; 83036; 83605; 83735; 83880; 84484; 84703; 85025; 85027; 85610; 85730; 87040; 87070; 87205; 87449; 87641; 88305; 93005; 94010; 94640; 94640 76; 94760; 94799; 99202; 99281; 99285; J0131; J0456; J0690; J0696; J1100; J1170; J1650; J1815; J1885; J2250; J2405; J2543; J2710; J2920; J2930; J3010; J3370; J7030; J7050; J7120; J7512

== ENCOUNTER 2016-12-02 12:36 | Inpatient (IN) | payer BC ==
[~2016-12-02] VITALS: Ht 154.9 cm; Wt 100.0 kg
[~2016-12-02 12:36] MED LIST changes: +MOTRIN800 MG PO; +MUCINEX600 MG PO; +PREDNISONE20 MG PO; +PROAIR HFA8.5 GM IH; +TORADOL10 MG PO; +ZANTAC150 MG PO
[2016-12-02 13:28] LABS: HEMATOCRIT 35.3 % (36.0-46.0); MCHC 32.9 G/DL (30.0-36.0); MCV 91.2 FL (83-99); MEAN PLAT.VOLUME 10.9 uM^3 (9.5-12.4); PLATELET COUNT 212 K/uL (156-360); RBC DIS.WIDTH-CV 13.1 % (11.8-14.6); RBC DIS.WIDTH-SD 43.9 % (39-53); RED BLOOD COUNT 3.87 M/uL (3.80-5.20); WHITE BLOOD COUNT 14.8 K/uL (4.1-10.2)
[2016-12-02 13:35] LABS: CHLORIDE 103 mEq/L (99-109); POTASSIUM 3.2 mEq/L (3.7-5.4); SODIUM 139 mEq/L (136-147)
[2016-12-02 13:36] LABS: GLUCOSE 129 mg/dL (70-99)
[2016-12-02 13:38] LABS: ANION GAP 12 MEQ/L (2-14)
[2016-12-02 13:40] LABS: GFR ESTIMATE (CALCULATED) > 59 mL/min/
[2016-12-02 13:41] LABS: UREA NITROGEN (BUN) 8 mg/dL (9-23)
[2016-12-02 13:57] LABS: BASE EXCESS 2.3 mEq/L (-3 to +3); BICARBONATE 27.8 mEq/L (22-26); CARBOXY HGB 2.8 % (0-5); METHEMOGLOBIN 1.1 % (0-1.5); PCO2 46 mm Hg (35-45); PO2 82 mm Hg (80-100); pH 7.39 (7.35-7.45)
[2016-12-02 13:58] LABS: COMMENTS - BLOOD GASES A+C+; DEVICE NC; O2 FLOW 4 L/MIN; SITE LR; TOTAL RESP RATE 16 resp/min
[2016-12-02] MEDS ORDERED: ADVIL,NUPRIN,M200 MG PO (16:23)
[2016-12-02 18:23] LABS: C-REACTIVE PROTEIN 145.8 MG/L (0-10)
[2016-12-02 18:24] VITALS: BP 134/74
[2016-12-02 23:20] VITALS: BP 129/58
[2016-12-03 03:10] VITALS: BP 127/60
[2016-12-03 06:34] LABS: EOSINOPHIL (%) 0 % (0-5); IMMATURE GRANULOCYTE (%) 0.6 % (0.0-0.7); IMMATURE GRANULOCYTE COUNT 0.1 K/uL; MCH 29.7 PG (29.0-34.0); MCHC 32.3 G/DL (30.0-36.0); MCV 91.9 FL (83-99); MONOCYTE (%) 2.1 % (3-12); MONOCYTE COUNT 0.3 K/uL (0-0.8); NEUTROPHIL (%) 89.6 % (45-76); PLATELET COUNT 224 K/uL (156-360); RBC DIS.WIDTH-CV 13.2 % (11.8-14.6); RBC DIS.WIDTH-SD 45.1 % (39-53); RED BLOOD COUNT 3.81 M/uL (3.80-5.20); WHITE BLOOD COUNT 13.4 K/uL (4.1-10.2)
[2016-12-03 06:50] VITALS: BP 132/80
[2016-12-03 06:59] LABS: ANION GAP 9 MEQ/L (2-14); CHLORIDE 107 MEQ/L (99-109); GFR ESTIMATE (CALCULATED) > 59 mL/min/; GLUCOSE 117 mg/dL (70-99); SAMPLE HEMOLYSIS CHECK 0; SAMPLE ICTERIC CHECK 0; SAMPLE LIPEMIA CHECK 0; SODIUM 141 MEQ/L (136-147); UREA NITROGEN (BUN) 10 mg/dL (9-23)
[2016-12-03 07:03] LABS: POTASSIUM 4.6 MEQ/L (3.7-5.4)
[2016-12-03 15:00] VITALS: BP 121/60
[2016-12-03 19:28] VITALS: BP 127/68
[2016-12-03 23:04] VITALS: BP 132/69
[2016-12-04 02:52] VITALS: BP 129/71
[2016-12-04 06:45] VITALS: BP 131/75
[2016-12-04 06:52] LABS: HEMATOCRIT 34.9 % (36.0-46.0); MCH 30.8 PG (29.0-34.0); MCHC 33.2 G/DL (30.0-36.0); MCV 92.6 FL (83-99); MEAN PLAT.VOLUME 11.2 uM^3 (9.5-12.4); PLATELET COUNT 233 K/uL (156-360); RBC DIS.WIDTH-CV 13.4 % (11.8-14.6); RBC DIS.WIDTH-SD 45.8 % (39-53); RED BLOOD COUNT 3.77 M/uL (3.80-5.20); WHITE BLOOD COUNT 15.3 K/uL (4.1-10.2)
[2016-12-04 07:05] LABS: ANION GAP 9 MEQ/L (2-14); CHLORIDE 104 MEQ/L (99-109); GFR ESTIMATE (CALCULATED) > 59 mL/min/; GLUCOSE 88 mg/dL (70-99); MAGNESIUM 1.9 mg/dl (1.3-2.7); POTASSIUM 4.1 MEQ/L (3.7-5.4); SAMPLE HEMOLYSIS CHECK 0; SAMPLE ICTERIC CHECK 0; SAMPLE LIPEMIA CHECK 0; SODIUM 141 MEQ/L (136-147); UREA NITROGEN (BUN) 12 mg/dL (9-23)
[2016-12-04 11:00] VITALS: BP 134/77
[2016-12-04 11:44] LABS: INTERNAL CONTROL VALID? YES
[2016-12-04 15:00] VITALS: BP 128/71
[2016-12-04 20:07] VITALS: BP 138/77
[2016-12-04 23:49] VITALS: BP 112/67
[2016-12-05 04:52] VITALS: BP 130/78
[2016-12-05 07:02] LABS: HEMATOCRIT 36.3 % (36.0-46.0); MCH 29.5 PG (29.0-34.0); MCHC 32.2 G/DL (30.0-36.0); MCV 91.4 FL (83-99); MEAN PLAT.VOLUME 10.6 uM^3 (9.5-12.4); PLATELET COUNT 244 K/uL (156-360); RBC DIS.WIDTH-CV 13.1 % (11.8-14.6); RBC DIS.WIDTH-SD 43.8 % (39-53); RED BLOOD COUNT 3.97 M/uL (3.80-5.20); WHITE BLOOD COUNT 11.4 K/uL (4.1-10.2)
[2016-12-05 07:45] VITALS: BP 131/64
[2016-12-05 11:31] VITALS: BP 135/71
[2016-12-05] MEDS ORDERED: NICOTINE PATCH1 EAC2 TD (11:38)
[2016-12-05] MEDS ORDERED: MEDROL DOSEPAK4 MG PO (11:38)
[2016-12-05] MEDS ORDERED: LEVAQUIN750 MG PO (11:45)
[2016-12-05] MEDS ORDERED: PREDNISONE10 MG PO (12:33)
== END 2016-12-05 15:01 | disposition home or self-care (01) | DRG 190 ==
LOC: EME 12:36 → EDOF 15:03 → ENRESERV 15:04 → 5EAST 18:11
PROVIDERS: Emergency Medicine; Internal Medicine
DX: J44.1 Chronic obstructive pulmonary disease with (acute) exacerbation (principal); J96.01 Acute respiratory failure with hypoxia; J67.9 Hypersensitivity pneumonitis due to unspecified organic dust; F11.20 Opioid dependence, uncomplicated; Z68.41 Body mass index [BMI] 40.0-44.9, adult; E66.9 Obesity, unspecified; F17.210 Nicotine dependence, cigarettes, uncomplicated; B18.2 Chronic viral hepatitis C; Z99.81 Dependence on supplemental oxygen; Z87.01 Personal history of pneumonia (recurrent); Z79.52 Long term (current) use of systemic steroids
CPT/HCPCS: 36600; 71020; 71250; 80048; 82803; 83605; 83735; 85025; 85027; 86140; 87040; 87070; 87205; 87449; 93005; 94640; 94640 76; 94799; 99202; 99281; 99285; J0692; J1650; J1956; J2920; J2930; J3370; J7030; J7040; J7050; J7512